=== PATIENT | male | born 1975 | race African-American/Black ===

== ENCOUNTER 2017-01-27 06:27 | Emergency (ER) | payer MEDICAID ==
[~2017-01-27] VITALS: Ht 190.5 cm; Wt 93.0 kg
[~2017-01-27 06:27] MED LIST: DEPAKOTE; LITHIUM; LOXAPINE; TRIAZOLAM
[2017-01-27 07:45] VITALS: BP 144/64
[2017-01-27] MEDS ORDERED: KETOROLAC 60MG/2ML VIAL IM ONE (07:45)
== END 2017-01-27 08:02 | disposition home or self-care (01) ==
LOC: ER 06:50
DX: M54.5 Low back pain (principal); F31.9 Bipolar disorder, unspecified; F20.9 Schizophrenia, unspecified; F17.200 Nicotine dependence, unspecified, uncomplicated; F12.10 Cannabis abuse, uncomplicated; Z88.0 Allergy status to penicillin; Z98.890 Other specified postprocedural states
CPT/HCPCS: 96372; 99283; J1885

== ENCOUNTER 2017-02-06 01:59 | Emergency (ER) | payer MEDICAID ==
[~2017-02-06] VITALS: Ht 190.5 cm; Wt 113.0 kg
[2017-02-06 02:03] VITALS: BP 138/93
== END 2017-02-06 04:21 | disposition left against medical advice (07) ==
LOC: ER 02:12
DX: Z53.21 Procedure and treatment not carried out due to patient leaving prior to being seen by health care provider (principal)

== ENCOUNTER 2017-06-18 21:03 | Emergency (ER) | payer MEDICAID ==
[~2017-06-18] VITALS: Ht 177.8 cm; Wt 77.0 kg
[2017-06-18] MEDS ORDERED: SODIUM CHLORIDE 0.9% 1,000 ML IV ONE (21:25)
[2017-06-18] MEDS ORDERED: ZIPRASIDONE MESYLATE 20MG/VIAL IM ONE (21:30)
[2017-06-18] MEDS ORDERED: LORAZEPAM 2MG/ML CPJ IM ONE (21:30)
[2017-06-18 21:42] LABS: BASOPHILS % 0.6 % (0.0-2.0); EOSINOPHILS % 1.5 % (0.0-5.0); HEMATOCRIT. 33.9 % (42.0-52.0); HEMOGLOBIN. 11.3 g/dL (14.0-18.0); LYMPHOCYTES % 28.2 % (20.0-50.0); MEAN CORPUSCULAR HEMOGLOBIN 29.6 pg (28.0-32.0); MEAN CORPUSCULAR VOLUME 88.7 fL (80.0-94.0); MEAN PLATELET VOLUME 7.1 fl (7.4-10.4); NEUTROPHILS % 58.7 % (40.0-76.0); PLATELET 243 x1000/uL (130-400); RED BLOOD CELL COUNT 3.82 mill/uL (4.7-6.1)
[2017-06-18 21:55] LABS: CARBON DIOXIDE 20 mEq/L (21-32); CHLORIDE 105 mEq/L (98-107); ETHANOL BLOOD < 10 mg/dL
[2017-06-18 22:57] LABS: CLARITY URINE CLEAR (CLEAR); COLOR URINE YELLOW (YELLOW); GLUCOSE URINE NEGATIVE (NEGATIVE); KETONES URINE TRACE (NEGATIVE); LEUKOCYTE ESTERASE URINE NEGATIVE (NEGATIVE); NITRITE URINE NEGATIVE (NEGATIVE); OCCULT BLOOD URINE NEGATIVE (NEGATIVE); PROTEIN URINE TRACE (NEGATIVE); SPECIFIC GRAVITY URINE 1.023 (1.005-1.030)
[2017-06-18 23:14] LABS: *AMPHETAMINES SCREEN URINE NEGATIVE (NEGATIVE); *BARBITURATES SCREEN URINE NEGATIVE (NEGATIVE); *BENZODIAZEPINES SCREEN URINE NEGATIVE (NEGATIVE); *COCAINE SCREEN URINE NEGATIVE (NEGATIVE); CANNABINOID URINE SCREEN PRESUMTIVE POSITIVE (NEGATIVE); METHADONE URINE SCREEN NEGATIVE (NEGATIVE); OPIATES URINE SCREEN NEGATIVE (NEGATIVE); PHENCYCLIDINE URINE SCREEN NEGATIVE (NEGATIVE)
[2017-06-19 07:28] VITALS: BP 123/89
== END 2017-06-19 08:38 | disposition home or self-care (01) ==
LOC: ER 21:10
DX: T50.901A Poisoning by unspecified drugs, medicaments and biological substances, accidental (unintentional), initial encounter (principal); F29 Unspecified psychosis not due to a substance or known physiological condition; G93.40 Encephalopathy, unspecified; F20.9 Schizophrenia, unspecified; F12.10 Cannabis abuse, uncomplicated; Z88.0 Allergy status to penicillin; Y92.89 Other specified places as the place of occurrence of the external cause
CPT/HCPCS: 36415; 80053; 80305; 80307; 80329; 81001; 84443; 85025; 93005; 96360; 96361; 96372; 99285; G0482; J2060; J3486; J7030; Z7610

== ENCOUNTER 2019-01-10 20:42 | Emergency (ER) | payer MEDICAID ==
[~2019-01-10] VITALS: Ht 167.6 cm; Wt 82.0 kg
[2019-01-10 21:51] LABS: BASOPHILS % 0.9 % (0.0-2.0); CHLORIDE 111 mEq/L (98-107); EOSINOPHILS % 2.9 % (0.0-5.0); HEMATOCRIT. 33.3 % (42.0-52.0); HEMOGLOBIN. 11.1 g/dL (14.0-18.0); LYMPHOCYTES % 38.6 % (20.0-50.0); MEAN CORPUSCULAR HEMOGLOBIN 28.2 pg (28.0-32.0); MEAN CORPUSCULAR VOLUME 84.7 fL (80.0-94.0); MEAN PLATELET VOLUME 7.5 fl (7.4-10.4); MONOCYTES % 13.6 % (2.0-8.0); PLATELET 218 x1000/uL (130-400); RED BLOOD CELL COUNT 3.94 mill/uL (4.7-6.1); RED CELL DISTRIBUTION WIDTH 14.5 % (11.6-14.6)
[2019-01-10 22:00] VITALS: BP 144/88
== END 2019-01-10 23:34 | disposition left against medical advice (07) ==
LOC: ER 20:42
DX: R07.89 Other chest pain (principal); I10 Essential (primary) hypertension; Z86.73 Personal history of transient ischemic attack (TIA), and cerebral infarction without residual deficits; Z86.011 Personal history of benign neoplasm of the brain; Z88.0 Allergy status to penicillin
CPT/HCPCS: 36415; 83880; 84484; 85379; 93005; 99284

== ENCOUNTER → 2019-03-27 | Emergency (ER) | payer MEDICAID ==
[~2019-03-27] VITALS: Ht 177.8 cm; Wt 100.0 kg
[2019-03-27 18:21] LABS: CHLORIDE 109 mEq/L (98-107)
[2019-03-27 18:25] LABS: ETHANOL BLOOD < 10 mg/dL
[2019-03-27 18:32] LABS: BASOPHILS % 0.4 % (0.0-2.0); EOSINOPHILS % 1.8 % (0.0-5.0); HEMATOCRIT. 33.7 % (42.0-52.0); LYMPHOCYTES % 24.3 % (20.0-50.0); MEAN CORPUSCULAR VOLUME 79.8 fL (80.0-94.0); MEAN PLATELET VOLUME 8.1 fl (7.4-10.4); MONOCYTES % 10.3 % (2.0-8.0); NEUTROPHILS % 63.2 % (40.0-76.0); PLATELET 189 x1000/uL (130-400); RED BLOOD CELL COUNT 4.23 mill/uL (4.7-6.1); RED CELL DISTRIBUTION WIDTH 15.9 % (11.6-14.6)
[2019-03-27 19:51] LABS: CLARITY URINE CLEAR (CLEAR); COLOR URINE YELLOW (YELLOW); KETONES URINE TRACE (NEGATIVE); LEUKOCYTE ESTERASE URINE NEGATIVE (NEGATIVE); NITRITE URINE NEGATIVE (NEGATIVE); OCCULT BLOOD URINE NEGATIVE (NEGATIVE); PROTEIN URINE NEGATIVE (NEGATIVE); SPECIFIC GRAVITY URINE 1.025 (1.005-1.030)
[2019-03-27 20:01] LABS: METHADONE URINE SCREEN NEGATIVE (NEGATIVE); OPIATES URINE SCREEN NEGATIVE (NEGATIVE)
[2019-03-27 20:02] LABS: *AMPHETAMINES SCREEN URINE NEGATIVE (NEGATIVE); *BARBITURATES SCREEN URINE NEGATIVE (NEGATIVE); *BENZODIAZEPINES SCREEN URINE NEGATIVE (NEGATIVE); *COCAINE SCREEN URINE PRESUMTIVE POSITIVE (NEGATIVE); CANNABINOID URINE SCREEN PRESUMTIVE POSITIVE (NEGATIVE); PHENCYCLIDINE URINE SCREEN NEGATIVE (NEGATIVE)
[2019-03-27] MEDS: MIDAZOLAM HCL 2 MG/2 ML VIAL IM ONE (21:04)
[2019-03-27] MEDS: OLANZAPINE 10 MG/VIAL IM ONE (23:46)
[2019-03-28] MEDS: MIDAZOLAM HCL 2 MG/2 ML VIAL IM ONE ×2 (00:38→05:24)
[2019-03-28] MEDS: ONDANSETRON 4MG ODT PO ONE (07:04)
[2019-03-28] MEDS: ACETAMINOPHEN 325MG TABLET PO ONE (07:04)
[2019-03-28] MEDS: LORAZEPAM 1MG TABLET PO ONE (08:00)
[2019-03-28] MEDS: LORAZEPAM 2MG/ML CPJ IM ONE ×2 (09:30→12:45)
[2019-03-28] MEDS: DIPHENHYDRAMINE 50MG/ML VIAL IM ONE (10:30)
[2019-03-28] MEDS: OLANZAPINE 10 MG/VIAL IM ONE (12:45)
[2019-03-29 04:00] VITALS: BP 192/136
[2019-03-29] MEDS: ONDANSETRON 4MG ODT PO ONE (06:12)
== END ==
LOC: ER 17:22
DX: R45.1 Restlessness and agitation (principal); F31.9 Bipolar disorder, unspecified; F20.9 Schizophrenia, unspecified
CPT/HCPCS: 36415; 80053; 80305; 80320; 81003; 85025; 93005; 96372; 99284; J2250; J3490; G0480

== ENCOUNTER 2019-04-12 23:21 | Emergency (ER) | payer MEDICAID ==
[~2019-04-12] VITALS: Ht 193 cm; Wt 100.0 kg
[~2019-04-12 23:21] MED LIST changes: +DIVA500T3 MT; +OLAN5TAB3 MT; +PROT40 PO; +SIMV20TA6 MT
[2019-04-13] MEDS ORDERED: METOCLOPRAMIDE HCL 10MG/2ML VIAL IV ONE (01:30)
[2019-04-13 01:41] LABS: BASOPHILS % 0.6 % (0.0-2.0); EOSINOPHILS % 2.3 % (0.0-5.0); HEMATOCRIT. 34.7 % (42.0-52.0); HEMOGLOBIN. 11.3 g/dL (14.0-18.0); MEAN CORPUSCULAR HEMOGLOBIN 25.9 pg (28.0-32.0); MEAN CORPUSCULAR VOLUME 79.8 fL (80.0-94.0); MEAN PLATELET VOLUME 7.1 fl (7.4-10.4); MONOCYTES % 5.9 % (2.0-8.0); NEUTROPHILS % 62.2 % (40.0-76.0); PLATELET 320 x1000/uL (130-400); RED BLOOD CELL COUNT 4.34 mill/uL (4.7-6.1)
[2019-04-13 01:45] LABS: *AMPHETAMINES SCREEN URINE NEGATIVE (NEGATIVE); *BARBITURATES SCREEN URINE NEGATIVE (NEGATIVE)
[2019-04-13 01:46] LABS: *BENZODIAZEPINES SCREEN URINE NEGATIVE (NEGATIVE); *COCAINE SCREEN URINE NEGATIVE (NEGATIVE); CANNABINOID URINE SCREEN NEGATIVE (NEGATIVE); METHADONE URINE SCREEN NEGATIVE (NEGATIVE); OPIATES URINE SCREEN NEGATIVE (NEGATIVE); PHENCYCLIDINE URINE SCREEN NEGATIVE (NEGATIVE)
[2019-04-13 01:48] LABS: CHLORIDE 109 mEq/L (98-107)
[2019-04-13 01:52] LABS: ETHANOL BLOOD < 10 mg/dL
[2019-04-13 05:00] VITALS: BP 144/69
== END 2019-04-13 05:28 | disposition home or self-care (01) ==
LOC: ER 23:21
DX: K44.9 Diaphragmatic hernia without obstruction or gangrene (principal); F17.210 Nicotine dependence, cigarettes, uncomplicated; Z71.6 Tobacco abuse counseling
CPT/HCPCS: 36415; 71045; 80053; 80305; 80320; 83690; 84484; 85025; 93005; 96374; 99284; 99406; J2765; G0480

== ENCOUNTER 2019-04-21 05:19 | Emergency (ER) | payer MEDICAID ==
[~2019-04-21] VITALS: Ht 193 cm; Wt 100.0 kg
[2019-04-21 05:28] VITALS: BP 104/80
== END 2019-04-21 06:40 | disposition left against medical advice (07) ==
LOC: ER 05:19
DX: M54.9 Dorsalgia, unspecified (principal); Z53.21 Procedure and treatment not carried out due to patient leaving prior to being seen by health care provider

== ENCOUNTER 2019-05-09 02:24 | Emergency (ER) | payer MEDICAID ==
[~2019-05-09] VITALS: Ht 182.9 cm; Wt 95.0 kg
[2019-05-09 02:25] VITALS: BP 126/70
== END 2019-05-09 05:48 | disposition left against medical advice (07) ==
LOC: ER 02:24
DX: Z53.21 Procedure and treatment not carried out due to patient leaving prior to being seen by health care provider (principal)

== ENCOUNTER 2019-05-18 02:50 | Emergency (ER) | payer MEDICAID ==
[~2019-05-18] VITALS: Ht 193 cm; Wt 105.0 kg
[2019-05-18 03:08] VITALS: BP 117/87
== END 2019-05-18 06:42 | disposition left against medical advice (07) ==
LOC: ER 02:50
DX: Z53.21 Procedure and treatment not carried out due to patient leaving prior to being seen by health care provider (principal)
CPT/HCPCS: 93005

== ENCOUNTER 2019-06-20 00:35 | Emergency (ER) | payer MEDICAID ==
[~2019-06-20] VITALS: Ht 190.5 cm; Wt 91.0 kg
[2019-06-20] MEDS ORDERED: HALOPERIDOL 5MG TABLET PO ONE (03:30)
[2019-06-20] MEDS ORDERED: LORAZEPAM 2MG/ML CPJ IM ONE (03:30)
[2019-06-20] MEDS ORDERED: BENZTROPINE MESYLATE 1MG TABLET PO ONE (03:30)
[2019-06-20] MEDS ORDERED: HALOPERIDOL 5MG TABLET PO SCH (03:45)
[2019-06-20 04:30] VITALS: BP 142/90
== END 2019-06-20 04:44 | disposition home or self-care (01) ==
LOC: ER 00:35
DX: F19.129 Other psychoactive substance abuse with intoxication, unspecified (principal); F31.9 Bipolar disorder, unspecified; E11.9 Type 2 diabetes mellitus without complications; I51.9 Heart disease, unspecified; F20.9 Schizophrenia, unspecified; Z86.73 Personal history of transient ischemic attack (TIA), and cerebral infarction without residual deficits; Z88.0 Allergy status to penicillin
CPT/HCPCS: 96372; 99283; J1630; J2060

== ENCOUNTER 2019-06-22 02:31 | Emergency (ER) | payer MEDICAID ==
[~2019-06-22] VITALS: Ht 193 cm; Wt 113.0 kg
[2019-06-22 02:35] VITALS: BP 150/91
== END 2019-06-22 02:49 | disposition left against medical advice (07) ==
LOC: ER 02:31
DX: Z53.21 Procedure and treatment not carried out due to patient leaving prior to being seen by health care provider (principal)

== ENCOUNTER 2019-06-24 05:14 | Emergency (ER) | payer MEDICAID | END 2019-06-24 05:53 | disposition left against medical advice (07) | LOC: ER 05:14 | DX: Z53.21 Procedure and treatment not carried out due to patient leaving prior to being seen by health care provider (principal) ==

== ENCOUNTER 2019-06-26 18:54 | Emergency (ER) | payer MEDICAID | END 2019-06-26 19:07 | disposition left against medical advice (07) | LOC: ER 18:54 | DX: T40.7X1A Poisoning by cannabis (derivatives), accidental (unintentional), initial encounter (principal); Z53.21 Procedure and treatment not carried out due to patient leaving prior to being seen by health care provider; Y92.89 Other specified places as the place of occurrence of the external cause ==

== ENCOUNTER 2019-06-29 16:08 | Emergency (ER) | payer MEDICAID ==
[~2019-06-29] VITALS: Ht 188 cm; Wt 100.0 kg
[2019-06-29] MEDS ORDERED: HALOPERIDOL LACTATE 5MG/ML VIAL IM ONE ×2 (16:15)
== END 2019-06-29 16:15 | disposition left against medical advice (07) ==
LOC: ER 16:08
DX: Z13.30 Encounter for screening examination for mental health and behavioral disorders, unspecified (principal); E11.9 Type 2 diabetes mellitus without complications; I10 Essential (primary) hypertension; Z79.899 Other long term (current) drug therapy; Z88.0 Allergy status to penicillin; Z86.73 Personal history of transient ischemic attack (TIA), and cerebral infarction without residual deficits
CPT/HCPCS: 99283

== ENCOUNTER 2019-06-30 21:02 | Emergency (ER) | payer MEDICAID ==
[~2019-06-30] VITALS: Ht 185.4 cm; Wt 111.0 kg
[2019-06-30] MEDS ORDERED: MIDAZOLAM HCL 2 MG/2 ML VIAL IM ONE (22:00)
[2019-07-01 00:30] VITALS: BP 128/80
== END 2019-07-01 00:31 | disposition home or self-care (01) ==
LOC: ER 21:02
DX: F14.10 Cocaine abuse, uncomplicated (principal); F12.10 Cannabis abuse, uncomplicated; E11.9 Type 2 diabetes mellitus without complications; I10 Essential (primary) hypertension; F10.10 Alcohol abuse, uncomplicated; Z86.73 Personal history of transient ischemic attack (TIA), and cerebral infarction without residual deficits; Y90.9 Presence of alcohol in blood, level not specified; Z88.0 Allergy status to penicillin
CPT/HCPCS: 96372; 99283; J2250; Z7610

== ENCOUNTER 2019-07-01 03:18 | Emergency (ER) | payer MEDICAID | END 2019-07-01 05:36 | disposition left against medical advice (07) | LOC: ER 03:18 | DX: Z53.21 Procedure and treatment not carried out due to patient leaving prior to being seen by health care provider (principal) ==

== ENCOUNTER 2019-10-23 09:03 | Emergency (ER) | payer MEDICAID ==
[~2019-10-23] VITALS: Ht 177.8 cm; Wt 81.0 kg
[~2019-10-23 09:03] MED LIST changes: +SIMV-43 MT; -SIMV20TA6 MT
[2019-10-23 09:09] VITALS: BP 116/96
[2019-10-23] MEDS ORDERED: ACETAMINOPHEN 325MG TABLET PO ONE (09:45)
[2019-10-23] MEDS ORDERED: KETOROLAC 15MG/ML VIAL IM ONE (10:00)
== END 2019-10-23 10:23 | disposition home or self-care (01) ==
LOC: ER 09:03
DX: M25.561 Pain in right knee (principal); M25.551 Pain in right hip; E11.9 Type 2 diabetes mellitus without complications; F20.9 Schizophrenia, unspecified; Z86.73 Personal history of transient ischemic attack (TIA), and cerebral infarction without residual deficits; Z79.899 Other long term (current) drug therapy; Z88.0 Allergy status to penicillin
CPT/HCPCS: 96372; 99283; J1885

== ENCOUNTER 2019-10-25 20:21 | Emergency (ER) | payer MEDICAID ==
[~2019-10-25] VITALS: Ht 172.7 cm; Wt 78.0 kg
[2019-10-25 21:00] VITALS: BP 133/75
== END 2019-10-25 21:01 | disposition home or self-care (01) ==
LOC: ER 20:21
DX: Z76.5 Malingerer [conscious simulation] (principal); E11.9 Type 2 diabetes mellitus without complications; I51.9 Heart disease, unspecified; F19.10 Other psychoactive substance abuse, uncomplicated; Z86.73 Personal history of transient ischemic attack (TIA), and cerebral infarction without residual deficits; Z88.0 Allergy status to penicillin; Z79.899 Other long term (current) drug therapy
CPT/HCPCS: 99283

== ENCOUNTER 2019-10-25 21:46 | Emergency (ER) | payer MEDICAID ==
[~2019-10-25] VITALS: Ht 193 cm; Wt 112.0 kg
[2019-10-25 22:52] VITALS: BP 155/101
== END 2019-10-25 23:57 | disposition left against medical advice (07) ==
LOC: ER 21:46
DX: M54.9 Dorsalgia, unspecified (principal); M79.605 Pain in left leg; F19.10 Other psychoactive substance abuse, uncomplicated; F17.210 Nicotine dependence, cigarettes, uncomplicated; Z88.0 Allergy status to penicillin; W33.01XA Accidental discharge of shotgun, initial encounter; Y93.89 Activity, other specified; Y92.89 Other specified places as the place of occurrence of the external cause; Y99.8 Other external cause status
CPT/HCPCS: 99281

== ENCOUNTER 2019-11-09 06:03 | Emergency (ER) | payer MEDICAID ==
[~2019-11-09] VITALS: Ht 188 cm; Wt 109.0 kg
[2019-11-09] MEDS ORDERED: KETOROLAC 60MG/2ML VIAL IM ONE (06:45)
[2019-11-09 07:02] VITALS: BP 125/80
== END 2019-11-09 07:07 | disposition home or self-care (01) ==
LOC: ER 06:03
DX: M25.561 Pain in right knee (principal); R26.2 Difficulty in walking, not elsewhere classified; R03.0 Elevated blood-pressure reading, without diagnosis of hypertension; E78.00 Pure hypercholesterolemia, unspecified; G40.909 Epilepsy, unspecified, not intractable, without status epilepticus; Z87.828 Personal history of other (healed) physical injury and trauma; Z86.73 Personal history of transient ischemic attack (TIA), and cerebral infarction without residual deficits
CPT/HCPCS: 96372; 99283; J1885

== ENCOUNTER 2019-11-15 21:46 | Emergency (ER) | payer MEDICAID | END 2019-11-15 22:35 | disposition home or self-care (01) | LOC: ER 21:46 | DX: B34.9 Viral infection, unspecified (principal); E11.9 Type 2 diabetes mellitus without complications; I10 Essential (primary) hypertension; Z86.73 Personal history of transient ischemic attack (TIA), and cerebral infarction without residual deficits; Z88.0 Allergy status to penicillin; Z79.899 Other long term (current) drug therapy | CPT/HCPCS: 99281 ==

== ENCOUNTER 2020-02-06 03:23 | Emergency (ER) | payer MEDICAID ==
[~2020-02-06] VITALS: Ht 193 cm; Wt 104.0 kg
[2020-02-06] MEDS ORDERED: ACETAMINOPHEN 325MG TABLET PO ONE (03:30)
[2020-02-06 04:15] VITALS: BP 121/72
== END 2020-02-06 04:16 | disposition home or self-care (01) ==
LOC: ER 03:23
DX: M25.551 Pain in right hip (principal); E11.9 Type 2 diabetes mellitus without complications; I10 Essential (primary) hypertension; F99 Mental disorder, not otherwise specified; Z86.73 Personal history of transient ischemic attack (TIA), and cerebral infarction without residual deficits; Z88.0 Allergy status to penicillin; Z87.828 Personal history of other (healed) physical injury and trauma
CPT/HCPCS: 99282; 99283

== ENCOUNTER 2020-04-02 01:22 | Emergency (ER) | payer MEDICAID ==
[~2020-04-02] VITALS: Ht 188 cm; Wt 94.0 kg
[2020-04-02] MEDS ORDERED: ASPIRIN 81MG TABLET PO ONE (01:45)
[2020-04-02 02:00] VITALS: BP 147/98
[2020-04-02 02:00] LABS: BASOPHILS % 1.1 % (0.0-2.0); EOSINOPHILS % 1.8 % (0.0-5.0); HEMATOCRIT. 38.6 % (42.0-52.0); HEMOGLOBIN. 12.6 g/dL (14.0-18.0); LYMPHOCYTES % 38.1 % (20.0-50.0); MEAN CORPUSCULAR HEMOGLOBIN 27.1 pg (28.0-32.0); MEAN CORPUSCULAR VOLUME 82.8 fL (80.0-94.0); MEAN PLATELET VOLUME 7.6 fl (7.4-10.4); MONOCYTES % 8.7 % (2.0-8.0); NEUTROPHILS % 50.3 % (40.0-76.0); PLATELET 246 x1000/uL (130-400); RED BLOOD CELL COUNT 4.66 mill/uL (4.7-6.1); RED CELL DISTRIBUTION WIDTH 17.4 % (11.6-14.6)
[2020-04-02] MEDS ORDERED: VISCOUS LIDOCAINE 2% 15 ML UDC PO ONE (02:00)
[2020-04-02] MEDS ORDERED: MAGNESIUM/ALUMINUM HYDROXIDE/SIMETHICONE 30ML UDC PO ONE (02:00)
[2020-04-02 02:04] LABS: CHLORIDE 108 mEq/L (98-107)
== END 2020-04-02 02:58 | disposition home or self-care (01) ==
LOC: ER 01:22
DX: K21.9 Gastro-esophageal reflux disease without esophagitis (principal); E11.9 Type 2 diabetes mellitus without complications; I10 Essential (primary) hypertension; I25.2 Old myocardial infarction; Z86.73 Personal history of transient ischemic attack (TIA), and cerebral infarction without residual deficits; Z88.0 Allergy status to penicillin
CPT/HCPCS: 36415; 71045; 80053; 83880; 84484; 85025; 93005; 99285; Z7610

== ENCOUNTER 2020-04-06 02:18 | Emergency (ER) | payer MEDICAID ==
[~2020-04-06] VITALS: Ht 193 cm; Wt 109.0 kg
[2020-04-06] MEDS ORDERED: MORPHINE SULFATE 4 MG/ML CPJ (NOT FOR IM USE) IV STA (03:31)
[2020-04-06] MEDS ORDERED: ONDANSETRON HCL 4MG/2ML INJ IV STA (03:31)
[2020-04-06] MEDS ORDERED: MAGNESIUM/ALUMINUM HYDROXIDE/SIMETHICONE 30ML UDC PO ONE (03:45)
[2020-04-06] MEDS ORDERED: KETOROLAC 15MG/ML VIAL IV ONE (03:45)
[2020-04-06 04:15] LABS: BASOPHILS % 0.7 % (0.0-2.0); EOSINOPHILS % 3.4 % (0.0-5.0); HEMATOCRIT. 37.3 % (42.0-52.0); HEMOGLOBIN. 12.3 g/dL (14.0-18.0); LYMPHOCYTES % 40.9 % (20.0-50.0); MEAN CORPUSCULAR HEMOGLOBIN 27.7 pg (28.0-32.0); MEAN CORPUSCULAR VOLUME 83.8 fL (80.0-94.0); PLATELET 196 x1000/uL (130-400); RED BLOOD CELL COUNT 4.45 mill/uL (4.7-6.1); RED CELL DISTRIBUTION WIDTH 17.5 % (11.6-14.6)
[2020-04-06 04:22] LABS: CHLORIDE 109 mEq/L (98-107)
[2020-04-06] MEDS ORDERED: ONDANSETRON 4MG ODT PO NR (04:30)
[2020-04-06] MEDS ORDERED: KETOROLAC 15MG/ML VIAL IM NR (04:30)
[2020-04-06] MEDS ORDERED: KETOROLAC 60MG/2ML VIAL IM NR (04:30)
[2020-04-06 04:45] VITALS: BP 114/81
== END 2020-04-06 06:02 | disposition home or self-care (01) ==
LOC: ER 02:18
DX: K44.9 Diaphragmatic hernia without obstruction or gangrene (principal); I10 Essential (primary) hypertension; E11.9 Type 2 diabetes mellitus without complications; I25.2 Old myocardial infarction; Z85.841 Personal history of malignant neoplasm of brain; Z86.73 Personal history of transient ischemic attack (TIA), and cerebral infarction without residual deficits; Z79.01 Long term (current) use of anticoagulants; Z88.0 Allergy status to penicillin
CPT/HCPCS: 36415; 80053; 83690; 84484; 85025; 93005; 96372; 99284; J1885; Q0162

== ENCOUNTER 2020-05-05 21:55 | Emergency (ER) | payer MEDICAID ==
[~2020-05-05] VITALS: Ht 193 cm; Wt 87.0 kg
[2020-05-05 21:58] VITALS: BP 120/89
== END 2020-05-05 22:31 | disposition left against medical advice (07) ==
LOC: ER 22:21
DX: R07.89 Other chest pain (principal); Z53.21 Procedure and treatment not carried out due to patient leaving prior to being seen by health care provider
CPT/HCPCS: 93005

== ENCOUNTER 2020-08-21 02:26 | Emergency (ER) | payer MEDICAID ==
[~2020-08-21] VITALS: Ht 193 cm; Wt 109.0 kg
[2020-08-21] MEDS ORDERED: KETOROLAC 30MG/ML VIAL IM ONE (03:15)
[2020-08-21 03:36] VITALS: BP 144/96
== END 2020-08-21 04:04 | disposition home or self-care (01) ==
LOC: ER 02:26
DX: G89.29 Other chronic pain (principal); M25.559 Pain in unspecified hip; Z88.0 Allergy status to penicillin; Z79.899 Other long term (current) drug therapy
CPT/HCPCS: 96372; 99283; J1885

== ENCOUNTER 2020-10-20 03:23 | Emergency (ER) | payer MEDICAID ==
[~2020-10-20] VITALS: Ht 193 cm; Wt 111.0 kg
[2020-10-20] MEDS ORDERED: KETOROLAC 30MG/ML VIAL IM SCH (05:00)
== END 2020-10-20 04:30 | disposition home or self-care (01) ==
LOC: ER 03:23
DX: G89.29 Other chronic pain (principal); M25.551 Pain in right hip; F17.210 Nicotine dependence, cigarettes, uncomplicated; Z87.828 Personal history of other (healed) physical injury and trauma; Z88.0 Allergy status to penicillin
CPT/HCPCS: 96372; 99283

== ENCOUNTER 2021-06-12 05:35 | Emergency (ER) | payer MEDICAID ==
[~2021-06-12] VITALS: Ht 193 cm; Wt 100.0 kg
[2021-06-12 07:30] VITALS: BP 126/93
[2021-06-12 09:13] LABS: BASOPHILS % 1.3 % (0.0-2.0); EOSINOPHILS % 2.1 % (0.0-5.0); HEMATOCRIT. 31.1 % (42.0-52.0); HEMOGLOBIN. 9.7 g/dL (14.0-18.0); LYMPHOCYTES % 25.6 % (20.0-50.0); MEAN CORPUSCULAR HEMOGLOBIN 24.3 pg (28.0-32.0); MEAN CORPUSCULAR VOLUME 77.8 fL (80.0-94.0); MEAN PLATELET VOLUME 7.4 fl (7.4-10.4); MONOCYTES % 10.5 % (2.0-8.0); NEUTROPHILS % 60.5 % (40.0-76.0); PLATELET 428 x1000/uL (130-400); RED BLOOD CELL COUNT 3.99 mill/uL (4.7-6.1); RED CELL DISTRIBUTION WIDTH 17.7 % (11.6-14.6)
[2021-06-12 09:19] LABS: CHLORIDE 113 mEq/L (98-107)
[2021-06-12] MEDS ORDERED: TOPUD PO (10:18)
== END 2021-06-12 10:47 | disposition home or self-care (01) ==
LOC: ER 05:35
DX: R07.89 Other chest pain (principal); R00.0 Tachycardia, unspecified; D64.9 Anemia, unspecified; E11.9 Type 2 diabetes mellitus without complications; D72.829 Elevated white blood cell count, unspecified; Z85.9 Personal history of malignant neoplasm, unspecified
CPT/HCPCS: 36415; 80053; 83880; 84484; 85025; 93005; 99284

== ENCOUNTER 2021-07-05 19:36 | Emergency (ER) | payer MEDICAID ==
[~2021-07-05] VITALS: Ht 193 cm; Wt 118.0 kg
[~2021-07-05 19:36] MED LIST changes: +TOPUD PO
[2021-07-05] MEDS ORDERED: ACETAMINOPHEN 325MG TABLET PO STA (21:11)
[2021-07-05 22:30] VITALS: BP 133/89
[2021-07-05 22:44] LABS: BASOPHILS % 1.9 % (0.0-2.0); EOSINOPHILS % 2.5 % (0.0-5.0); HEMATOCRIT. 36.4 % (42.0-52.0); LYMPHOCYTES % 28.6 % (20.0-50.0); MEAN CORPUSCULAR HEMOGLOBIN 23.5 pg (28.0-32.0); MEAN CORPUSCULAR VOLUME 77.3 fL (80.0-94.0); MEAN PLATELET VOLUME 7.6 fl (7.4-10.4); MONOCYTES % 3.9 % (2.0-8.0); NEUTROPHILS % 63.1 % (40.0-76.0); PLATELET 439 x1000/uL (130-400); RED BLOOD CELL COUNT 4.71 mill/uL (4.7-6.1); RED CELL DISTRIBUTION WIDTH 17.2 % (11.6-14.6)
[2021-07-05 22:50] LABS: CHLORIDE 112 mEq/L (98-107)
[2021-07-05 22:54] LABS: ETHANOL BLOOD < 10 mg/dL
[2021-07-05 23:31] LABS: CANNABINOID URINE SCREEN NEGATIVE (NEGATIVE); METHADONE URINE SCREEN NEGATIVE (NEGATIVE); OPIATES URINE SCREEN NEGATIVE (NEGATIVE); PHENCYCLIDINE URINE SCREEN NEGATIVE (NEGATIVE)
[2021-07-05 23:32] LABS: *BARBITURATES SCREEN URINE NEGATIVE (NEGATIVE); *BENZODIAZEPINES SCREEN URINE NEGATIVE (NEGATIVE); *COCAINE SCREEN URINE NEGATIVE (NEGATIVE)
[2021-07-05 23:33] LABS: *AMPHETAMINES SCREEN URINE NEGATIVE (NEGATIVE)
== END 2021-07-05 22:50 | disposition home or self-care (01) ==
LOC: ER 19:36
DX: R07.89 Other chest pain (principal); I25.2 Old myocardial infarction; G40.909 Epilepsy, unspecified, not intractable, without status epilepticus; Z86.73 Personal history of transient ischemic attack (TIA), and cerebral infarction without residual deficits; Z86.011 Personal history of benign neoplasm of the brain; Z98.890 Other specified postprocedural states; Z88.0 Allergy status to penicillin
CPT/HCPCS: 36415; 71045; 80053; 80305; 80320; 84484; 85025; 93005; 99285; G0480

== ENCOUNTER 2021-08-30 03:40 | Emergency (ER) | payer MEDICAID ==
[~2021-08-30] VITALS: Ht 193 cm; Wt 100.0 kg
[2021-08-30] MEDS ORDERED: IBUP-2028 MT (04:06)
[2021-08-30] MEDS ORDERED: ASPIRIN 325MG EC TABLET PO ONE (04:15)
[2021-08-30] MEDS ORDERED: IBUPROFEN 600MG TABLET PO ONE (04:15)
[2021-08-30 04:34] VITALS: BP 105/78
== END 2021-08-30 05:44 | disposition home or self-care (01) ==
LOC: ER 03:40
DX: R07.89 Other chest pain (principal); G89.29 Other chronic pain; G40.909 Epilepsy, unspecified, not intractable, without status epilepticus; I25.2 Old myocardial infarction; F12.10 Cannabis abuse, uncomplicated; F17.210 Nicotine dependence, cigarettes, uncomplicated; Z86.73 Personal history of transient ischemic attack (TIA), and cerebral infarction without residual deficits; Z71.6 Tobacco abuse counseling; Z88.0 Allergy status to penicillin
CPT/HCPCS: 93005; 99283; 99406

== ENCOUNTER 2021-09-09 22:06 | Emergency (ER) | payer MEDICAID ==
[~2021-09-09] VITALS: Ht 193 cm; Wt 100.0 kg
[~2021-09-09 22:06] MED LIST changes: +IBUP-2028 MT
[2021-09-09 22:44] VITALS: BP 132/93
[2021-09-09] MEDS ORDERED: MAGNESIUM/ALUMINUM HYDROXIDE/SIMETHICONE 30ML UDC PO STA (22:51)
[2021-09-09] MEDS ORDERED: VISCOUS LIDOCAINE 2% 15 ML UDC PO STA (22:51)
[2021-09-09] MEDS ORDERED: FAMOTIDINE 20MG TABLET PO ONE (23:00)
[2021-09-10] MEDS ORDERED: VISCOUS LIDOCAINE 2% 15 ML UDC PO SCH (02:30)
[2021-09-10] MEDS ORDERED: PROT40 PO (02:36)
[2021-09-11] MEDS ORDERED: OMEP20TA15 MT (21:06)
== END 2021-09-10 02:41 | disposition home or self-care (01) ==
LOC: ER 22:06
DX: K29.70 Gastritis, unspecified, without bleeding (principal); R07.89 Other chest pain; R10.13 Epigastric pain; I25.2 Old myocardial infarction; Z86.73 Personal history of transient ischemic attack (TIA), and cerebral infarction without residual deficits; F12.10 Cannabis abuse, uncomplicated; Z79.899 Other long term (current) drug therapy; Z88.0 Allergy status to penicillin
CPT/HCPCS: 71045; 93005; 99284

== ENCOUNTER 2021-09-11 19:03 | Emergency (ER) | payer MEDICAID ==
[~2021-09-11] VITALS: Ht 193 cm; Wt 101.2 kg
[2021-09-11 20:41] LABS: BASOPHILS % 0.6 % (0.0-2.0); EOSINOPHILS % 2.8 % (0.0-5.0); HEMATOCRIT. 34.7 % (42.0-52.0); HEMOGLOBIN. 10.9 g/dL (14.0-18.0); LYMPHOCYTES % 29.2 % (20.0-50.0); MEAN CORPUSCULAR HEMOGLOBIN 24.2 pg (28.0-32.0); MEAN CORPUSCULAR VOLUME 76.8 fL (80.0-94.0); MONOCYTES % 6.5 % (2.0-8.0); NEUTROPHILS % 60.9 % (40.0-76.0); PLATELET 378 x1000/uL (130-400); RED BLOOD CELL COUNT 4.51 mill/uL (4.7-6.1); RED CELL DISTRIBUTION WIDTH 17.8 % (11.6-14.6)
[2021-09-11 20:46] LABS: CHLORIDE 110 mEq/L (98-107)
[2021-09-11] MEDS ORDERED: MAGNESIUM/ALUMINUM HYDROXIDE/SIMETHICONE 30ML UDC PO ONE (21:00)
[2021-09-11] MEDS ORDERED: KETOROLAC 30MG/ML VIAL IM ONE (21:00)
[2021-09-11] MEDS ORDERED: OMEP20TA15 MT (21:06)
[2021-09-11 21:19] VITALS: BP 132/93
== END 2021-09-11 21:20 | disposition home or self-care (01) ==
LOC: ER 19:03
DX: K29.70 Gastritis, unspecified, without bleeding (principal)
CPT/HCPCS: 36415; 71045; 80053; 84484; 85025; 93005; 96372; 99285; J1885